=== PATIENT | male | born 1985 | race Caucasian/White ===

== ENCOUNTER 2021-12-14 22:34 | Emergency (ER) | payer MEDICARE, SELFPAY ==
[2021-12-14 22:35] VITALS: BP 155/80; PULSE 83; RESP 16; TEMP 36.4; O2SAT 98; BMI 32.3
--- NOTE | 2021-12-14 22:58 | EX.ED.UPPERE ---
HPI History of Present Illness Chief Complaint: Laceration Detail of Chief Complaint: Lacerations to right hand that occurred about 48 hours ago Informant: patient Narrative Narrative: Patient presents to the emergency department complaining of lacerations that he incurred about 48 hours ago. Patient states that he slipped in the kitchen and try to catch himself and slid his fingers across sheet-metal causing lacerations to his long, ring, and small fingers. Patient is left-hand dominant. Patient complains of some numbness to the tip and lateral aspect of the ring finger. He denies loss of strength or range of motion in the fingers. [facility] Medical History (Updated 12/14/21 @ 23:[address] Srinivasa Mishra, DO) Diabetes type 1, controlled Legally blind Home Medications insulin lispro [Humalog] 100 unit SQ 08/13/17 [History Last Taken Unknown] atorvastatin 20 mg PO DAILY 12/14/21 [History Last Taken Unknown] cephalexin 500 mg PO Q6 #40 capsule 12/14/21 [Rx Last Taken Unknown] insulin glargine [Lantus U-100 Insulin] SUBCUT 12/14/21 [History Last Taken Unknown] Allergy/AdvReac Type Severity Reaction Status Date / Time No Known Allergies Allergy Verified 12/14/21 22:44 Social History Smoking Status: Never smoker ROS [facility] ED Constitutional Constitutional ED: Reports systems reviewed and no addt'l complaints, except as documented; Denies body ache(s), change in weight or chills Eyes Eyes: Denies acute decrease in peripheral vision, change in vision, double vision or loss of vision ENT ENT ED: Reports none; Denies ear pain, lip swelling, loss taste/smell, neck pain, otalgia or sore throat Cardiovascular Cardiovascular: Reports none; Denies abdominal pain, chest pain with activity, leg edema, lightheadedness, palpitations, rapid heart rate or syncope Respiratory/Chest Respiratory/Chest: Reports none; Denies change in mental status, dry cough, dyspnea, hemoptysis, shortness of breath at rest or shortness of breath with exertion Gastrointestinal Gastrointestinal: Reports none; Denies abdominal pain, change in stool character, diarrhea, hematemesis, hematochezia, melena, rectal bleeding or vomiting Genitourinary Genitourinary ED: Reports none; Denies abdominal discomfort, anuria, dysuria, genital pain or polyuria Musculoskeletal Musculoskeletal: Reports none and other Details: Lacerations to right long, ring, and small fingers ; Denies arthralgias, back pain, difficulty walking, extremity pain, muscle weakness or myalgias Integumentary Reports none; Denies abscess or rash Neurologic Neurologic: Reports none; Denies abnormal gait, confusion, focal weakness, frequent falls, headache(s), loss of vision, numbness, paresthesias, radicular pain, vertigo or weakness Psychiatric Psychiatric: Reports systems reviewed and no addt'l complaints, except as documented and none; Denies behavioral changes, confusion, difficulty concentrating, hallucinations, suicidal ideation, tactile hallucinations or visual hallucinations Endocrine Endocrinology: Denies none, cold intolerance, excessive sweating, fatigue or heat intolerance Hematologic/Lymphatic Hematologic/Lymphatic: Reports none; Denies anemia, easy bleeding or easy bruising Allergic/Immunologic Allergic/Immunologic ED: Denies as per HPI, none, lip swelling, mouth swelling, throat swelling, tongue swelling or hives EXAM Physical Exam Const Vital Signs: 12/14/21 22:35 Temperature 97.6 F L Temperature Source Temporal Pulse Rate 83 Respiratory Rate 16 Blood Pressure 155/80 H Blood Pressure Mean 105 Pulse Ox 98 Oxygen Delivery Method Room Air Positive well nourished and well developed General Appearance ED: well developed and NAD HEENT Reports TM's clear and moist mucous membranes normocephalic and atraumatic; Negative for trauma or tenderness Tympanic Membrane ED: Yes TM's clear Eyes PERRL and EOMs intact bilaterally General Eye ED: Negative for pale conjunctiva or scleral icterus Neck no lymphadenopathy, supple and no JVD General: Negative for tenderness Chest Wall inspection of chest normal and palpation of chest normal Chest: Negative for tenderness Resp normal respiratory effort and clear to auscultation bilaterally Effort and Inspection: Negative for respiratory distress or pain with movement Auscultation: Negative for rhonchi, wheezes or diminished lung sounds Cardio regular rate, regular rhythm, S1 normal heart sound, S2 normal heart sound and no murmurs Peripheral Pulses: pulses 2+ throughout GI normal to inspection, nondistended, normoactive bowel sounds, soft to palpation, non-tender, non-distended and no masses Back/Spine no CVA tenderness and no thoracic nor lumbar tenderness Extremity Extremity Narrative: Evaluation of the right hand-patient has a 1.5 cm laceration to the pulp of the small finger that is well approximated and healing without active bleeding or purulent drainage noted. Patient also has a 2 cm laceration involving the volar aspect of the DIP joint of the ring finger with good range of motion flexion extension of the digit at the PIP and DIP. Patient also has a 2.5 cm laceration over the area of the DIP of the volar aspect of the long finger with good flexion extension of the digit at the DIP and PIP. Patient is noted to have slightly decreased sensation to the lateral aspect of the DIP of the ring finger. General Extremety ED: Negative for edema General Extremity: Negative for edema Neuro oriented x3, CN's II-XII intact bilaterally, no sensory deficits noted and gait normal Sensorium / Orientation: awake, alert, oriented to person, oriented to place and oriented to time Motor Exam: strength 5/5 throughout and strength abnormal Psych mental status grossly normal Skin no rashes or lesions noted and no wounds MDM MDM MDM Narrative Medical decision making narrative: Patient has wounds that are 48 hours old. These wounds are not amenable to suture repair. I suspect patient may have injury to the digital nerve of the ring finger. Wounds are already healing and cannot fully evaluate and visualize the flexor tendons. Patient will have clean dressing applied and will be referred to orthopedics for follow-up. Patient will be given a tetanus booster. Discharge Plan Triage Chief Complaint: Laceration ED Provider: Srinivasa Mishra Dx/Rx/DC Orders Clinical Impression: Finger laceration Instructions: ED Laceration, Old: Not Sutured Prescriptions: New cephalexin [cephalexin] 500 MG capsule 500 mg PO Q6 Qty: 40 RF: 0 No Action insulin lispro [Humalog U-100 Insulin] 100 UNIT/ML solution 100 unit SQ RF: 0 atorvastatin 20 mg tablet 20 mg PO DAILY RF: 0 Lantus U-100 Insulin 100 unit/mL solution SUBCUT RF: 0 Primary Care Provider: Ashwin Rosario Referrals: Lamont Gonzalez DO [STAFF PHYSICIAN] - 5-7 Days Ashwin Rosario MD [Primary Care Provider] - Disposition Disposition: Home, Self Care
[2021-12-14] MEDS: Diphth,Pertuss(Acell),Tet Vac 0.5 ML Vial IM (23:06)
== END 2021-12-14 23:12 | disposition home or self-care (01) ==
PROVIDERS: Emergency Provider Emergency Medicine; PCP Family Medicine; Visit Provider Emergency Medicine
DX: S61.216A Laceration without foreign body of right little finger without damage to nail, initial encounter (principal); E10.9 Type 1 diabetes mellitus without complications; Z79.4 Long term (current) use of insulin; S61.214A Laceration without foreign body of right ring finger without damage to nail, initial encounter; S61.212A Laceration without foreign body of right middle finger without damage to nail, initial encounter; W26.8XXA Contact with other sharp object(s), not elsewhere classified, initial encounter; Y93.9 Activity, unspecified; Y92.090 Kitchen in other non-institutional residence as the place of occurrence of the external cause; H54.8 Legal blindness, as defined in USA
CPT/HCPCS: 90471; 90715; 99282

== ENCOUNTER 2024-04-11 18:09 | Emergency (ER) | payer MEDICARE, SELFPAY ==
[2024-04-11 18:10] VITALS: BMI 31.1
[2024-04-11 18:11] VITALS: BP 166/96; PULSE 72; RESP 18; TEMP 35.9; O2SAT 99; BMI 29.0
--- NOTE | 2024-04-11 18:16 | EKG12_ITS ---
Test Reason : Blood Pressure : / mmHG Vent. Rate : 062 BPM Atrial Rate : 062 BPM P-R Int : 224 ms QRS Dur : 104 ms QT Int : 418 ms P-R-T Axes : 046 008 023 degrees QTc Int : 424 ms Sinus rhythm with 1st degree A-V block Minimal voltage criteria for LVH, may be normal variant ( R in aVL ) Borderline ECG Confirmed by Mook Contreras ([id number]), market editor GAMAL GARCIA ([id number]) on 04/16/2024 9:46:16 AM Referred By: Confirmed By:Mook Contreras
--- NOTE | 2024-04-11 18:19 | CT_ITS ---
INDICATION: left sided facial paralysis EXAMINATION: CTA CAROTIDS AND BRAIN - CTA Head and Neck W/ Contrast Injection (and W/O Contrast Images if performed) TECHNIQUE: Noncontrast CT head followed by Routine CTA of the head and neck was performed with post processing of the angiographic images for volumetric reconstructions. In addition, images were obtained of the [place] of [place]. Nascet criteria using the distal ICAs for comparison were used for evaluation of stenoses. 3D reconstructions were reviewed. A radiation dose optimization technique was used for this scan. IV Contrast dosage and agent: 100 mL Isovue-370 COMPARISON: None. FINDINGS: --Noncontrast CT head: No intracranial hemorrhage, mass, or focal mass effect. Normal hurd-white matter differentiation. No hydrocephalus. No scalp hematoma. Unremarkable orbits. Mastoid air cells are clear. Mild scattered paranasal sinus mucoperiosteal thickening. No acute osseous finding. --NECK: AORTIC ARCH AND BRANCHES: Normal anatomy, patent. RIGHT CCA: No occlusion, significant stenosis or dissection. RIGHT ICA: No occlusion, significant stenosis or dissection. LEFT CCA: No occlusion, significant stenosis or dissection. LEFT ICA: No occlusion, significant stenosis or dissection. RIGHT VERTEBRAL ARTERY: No occlusion, significant stenosis or dissection. LEFT VERTEBRAL ARTERY: No occlusion, significant stenosis or dissection. NECK SOFT TISSUES: Unremarkable. LUNG APICES: Clear. BONES: Unremarkable. --HEAD: --Anterior circulation: ICAs: No significant stenosis at the intracranial/visualized segments. ACAs: No significant stenosis at the visualized segments. ACOM: Present. MCAs: No significant stenosis at the visualized segments. --Posterior circulation: PCOMs: Not seen spinner box: No significant stenosis at the visualized segments. BASILAR ARTERY: No significant stenosis. VERTEBRAL ARTERIES: No significant stenosis at the intradural/visualized segments. No evidence of intracranial aneurysm or vascular malformation. CT/CTA Head AND Neck W/ Contrast IMPRESSION: No CT evidence of acute intracranial hemorrhage or injury. No CT evidence of cervical or proximal intracranial vascular occlusion or focal flow-limiting stenosis. Electronically Signed: Javier Dixon MD at 19:01 EDT ,
--- NOTE | 2024-04-11 18:25 | EDS_ITS ---
HPI History of Present Illness Chief Complaint: Stroke Alert Informant: patient Onset/Context/Timing Onset: Today and Hours Timing: Continuous Quality and Location: Positive for Left Facial Droop and Left Face Parasthesia Current Severity: Mild Maximum Severity: Mild Associated Symptoms Associated Symptoms: Negative for Headache, Nausea, Vomiting or Chest Pain Narrative Narrative: 39-year-old type I diabetic today around 11 AM developed left-sided facial paralysis and numbness. No trouble with his speech or vision. No weakness or numbness to his arms or legs. No headache. No prior stroke or TIA history. No other complaints. No recent illness. No recent hospitalization. Prior similar symptoms: No Recent Illness/Hospitalization: No PFSH PFS Medical History Legally blind Diabetes type 1, controlled Home Medications ?Medication ?Instructions ?Recorded ?Last Taken ?Type insulin lispro 100 unit/mL 100 unit SQ 08/13/17 Unknown History subcutaneous solution (Humalog U-100 Insulin) atorvastatin 20 mg tablet 20 mg PO DAILY 12/14/21 Unknown History cephalexin 500 mg capsule 500 mg PO Q6 #40 CAPSULES 12/14/21 Unknown Rx insulin glargine 100 unit/mL subcut 12/14/21 Unknown History subcutaneous solution (Lantus U-100 Insulin) acyclovir 800 mg tablet 800 mg PO TID #14 tabs 04/11/24 Unknown Rx insulin aspart U-100 100 unit/mL subcut 04/11/24 Unknown History (3 mL) subcutaneous pen (Novolog FlexPen U-100 Insulin aspart) prednisone 20 mg tablet 40 mg (2 x 20 mg) PO DAILY 6 days 04/11/24 Unknown Rx #12 tabs Allergy/AdvReac Type Severity Reaction Status Date / Time No Known Allergies Allergy Verified 04/11/24 18:11 Social History Smoking Status: Never smoker ROS ROS ED ROS Narrative Denies recent illness. Review of Systems ROS Unobtainable: Denies due to encephalopathy Constitutional Constitutional ED: Denies chills or fever(s) Eyes Eyes: Denies change in vision ENT ENT ED: Denies ear pain Cardiovascular Cardiovascular: Denies chest pain Respiratory/Chest Respiratory/Chest: Denies cough or dyspnea Gastrointestinal Gastrointestinal: Denies abdominal pain Genitourinary Genitourinary ED: Denies dysuria or hematuria Musculoskeletal Musculoskeletal: Denies arthralgias Integumentary Denies abscess or Abrasions Neurologic Neurologic: Denies headache(s) Psychiatric Psychiatric: Denies anxiety or depression Endocrine Endocrinology: Denies polydipsia Hematologic/Lymphatic Hematologic/Lymphatic: Denies easy bleeding, easy bruising or lymphadenopathy Allergic/Immunologic Allergic/Immunologic ED: Denies mouth swelling or urticaria EXAM Physical Exam Narrative Exam Narrative: 39-year-old male vital signs stable afebrile. Saw the patient in triage because of a stroke alert called. H EENT exam pupils round reactive light extra motions are intact. Sparing of his forehead he is able to wrinkle both sides of his forehead. He has a left facial droop. Tongue midline. Normal speech. Extraocular motions are intact. He has trouble closing his left eye. Neck nontender. Lungs clear. Heart regular rhythm. Abdomen soft nontender. Moving all 4 extremities. 5 out of 5 land conservation specialist strength. Dorsi and plantarflexion intact. Fingertip to nose within normal limits. Other than his left facial droop he has no other neurological findings. There is sparing. 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 Const Vital Signs: 04/11/24 18:11 04/11/24 19:10 04/11/24 19:10 Temperature 96.7 F L Temperature Source Temporal Pulse Rate 72 66 65 Respiratory Rate 18 18 22 H Blood Pressure 166/96 H 133/84 H 133/84 H Blood Pressure Mean 119 100 100 Pulse Ox 99 97 95 Oxygen Delivery Method Room Air Room Air 04/11/24 20:00 04/11/24 21:00 Temperature Temperature Source Pulse Rate 62 66 Respiratory Rate 16 18 Blood Pressure 130/89 H 136/92 H Blood Pressure Mean 102 106 Pulse Ox 98 98 Oxygen Delivery Method Room Air Positive well nourished and well developed; Negative for obese, cachectic, contractures or unkempt General Appearance ED: well developed and NAD; Negative for unkempt, cachectic or contractures Nutritional Appearance: Negative for cachectic or obese HEENT Reports moist mucous membranes; Denies dry mucous membranes atraumatic; Negative for trauma Mouth ED: No dry mucous membranes Mouth: No dry mucous membranes Eyes PERRL and EOMs intact bilaterally General Eye ED: Negative for pale conjunctiva or scleral icterus Neck no lymphadenopathy, supple and no JVD General: Negative for tenderness Thyroid: Negative for other Chest Wall inspection of chest normal and palpation of chest normal Chest: Negative for other Resp normal respiratory effort and clear to auscultation bilaterally Effort and Inspection: Negative for retractions or pain with movement Auscultation: Negative for rales, rhonchi or wheezes Cardio no murmurs Rate: regular rate Rhythm: regular rhythm GI normal to inspection, nondistended, normoactive bowel sounds, soft to palpation, non-tender, non-distended and no masses Inspection: Negative for abdominal distention Auscultation: normoactive bowel sounds Palpation: Negative for tender or guarding Back/Spine no CVA tenderness General Back: Negative for CVA tenderness or other Cervical Spine: Negative for cervical spine tenderness Thoracic Spine / Upper Back: Negative for thoracic spinal tenderness Lumbar Spine / Lower Back: Negative for lumbar spinal tenderness Extremity normal to inspection General Extremety ED: Negative for deformity, edema or tenderness General Extremity: Negative for deformity or edema Neuro oriented x3 and No CN's II-XII intact bilaterally Neuro Narrative: Left facial droop. Forehead spared. Normal speech. Normal extraocular motions. Weakness and closing his left eye. Consistent with a Hernandez's palsy. Bilateral normal land conservation specialist strength. Normal dorsi plantarflexion. Sensorium / Orientation: alert, oriented to person, oriented to place and oriented to time; Negative for orientation impaired, confused or stuporous Speech: speech normal Motor Exam: strength 5/5 throughout Psych mental status grossly normal Appearance: Negative for unkempt Attitude: No agitated Mood & Affect: Negative for depressed, anxious or tearful Attention / Concentration: Negative for other Skin no wounds General Skin Exam: Negative for jaundice Lesions: no lesions Rashes: no rashes NIHSS NIHSS Initial: 1a Level of Consciousness: 0 1b LOC Questions (Score 2 if aphasic/stupor): 0 1c LOC Commands (Only score 1st attempt): 0 2 Best Gaze (If aphasic, use reflexive mvmts.): 0 3 Visual: 0 4 Facial Palsy: 2 5 Motor Arm Right (UN = amputation/fusion): 0 5 Motor Arm Left: 0 6 Motor Leg Right: 0 6 Motor Leg Left: 0 7 Limb ataxia (Only + if out of proportion): 0 8 Sensory (Aphasia/stupor=0 or 1, coma=2): 0 9 Best Language: 0 10 Dysarthria (mute, coma=2, intubated=UN): 0 11 Extinction and Inattention (only scored if +): 0 Total Score: 2 MDM MDM MDM Narrative Medical decision making narrative: 39-year-old insulin-dependent diabetic male with 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 CAT scan and labs are being obtained. Repeat exam patient doing well at 9:20 PM. Exam unchanged. Again left facial droop. Sparing of the forehead. Difficulty tightly closing his left eye. Consistent with Hernandez's palsy. The rest of his neurologic exam is normal. Normal motor strength and sensation in both upper and lower extremities no drift. He will be discharged home and treated as Hernandez's palsy. Acyclovir and prednisone. History & Record Review Discussion w/independent historian: Patient and Family Additional record(s) reviewed:: Prior inpatient record, Prior outpatient record, Prior ED visit and Prior labs Lab Data Attestation: I reviewed the patient's lab results. Lab results narrative: CBC normal. White count of 6. H&H 14 and 44. Platelets 233. Electrolytes show gap 4. Normal BUN and creatinine. Glucose 164. Liver enzymes normal. CT of the brain and CTA head and neck unremarkable. Labs: Laboratory Results - last 24 hr 04/11/24 18:20 WBC 6.4 RBC 4.90 Hgb 14.9 Hct 44.6 MCV 91.0 MCH 30.4 MCHC 33.4 RDW Std Deviation 39.8 RDW Coeff of Katey 11.9 Plt Count 233 MPV 11.6 Sodium 136 Potassium 3.6 Chloride 102 Carbon Dioxide 30.0 Anion Gap 4 L BUN 12 Creatinine 1.17 Estim Creat Clear Calc 96.46 Est GFR (MDRD) Af Amer 89 Est GFR (MDRD) Non-Af 74 BUN/Creatinine Ratio 10.3 Glucose 164 H Calcium 9.0 Total Bilirubin 1.30 H AST 17 ALT 22 Alkaline Phosphatase 75 Total Protein 7.8 Albumin 3.8 Globulin 4.0 Albumin/Globulin Ratio 1.0 Radiography Diagnostic Testing: Clinical Impression(s) from Imaging Studies Head/Neck CTA 04/11/24 18:19 IMPRESSION: No CT evidence of acute intracranial hemorrhage or injury. No CT evidence of cervical or proximal intracranial vascular occlusion or focal flow-limiting stenosis. Electronically Signed: Javier Dixon MD at 19:01 EDT , Rhythm Strip Rhythm Strip: Sinus Rhythm Rate: 62 Ectopy: None EKG Initial EKG: Attestation: I personally reviewed and interpreted this EKG as follows: Interpretation: Sinus Rhythm and No Acute Injury Pattern Comments: Normal sinus rhythm rate of 62. No acute signs of NE or ischemia. No dysrhythmia. First-degree AV block. OH interval 224 Discharge Plan Triage Chief Complaint: Stroke Alert ED Provider: Farooq Sumner Dx/Rx/DC Orders Clinical Impression: Hernandez's palsy, History of diabetes mellitus Instructions: Hernandez's Palsy Prescriptions: New prednisone 20 mg tablet 40 mg PO DAILY 6 Days Qty: 12 0RF acyclovir 800 mg tablet 800 mg PO TID Qty: 14 0RF No Action insulin lispro [Humalog U-100 Insulin] 100 UNIT/ML solution 100 unit SQ Patient Comments: SLIDING SCALE atorvastatin 20 mg tablet 20 mg PO DAILY Lantus U-100 Insulin 100 unit/mL solution SUBCUT Patient Comments: INJECT 12 UNITS SUBCUTANEOUSLY AT BEDTIME cephalexin [cephalexin] 500 MG capsule 500 mg PO Q6 Qty: 40 0RF insulin aspart U-100 [Novolog FlexPen U-100 Insulin] 100 unit/mL (3 mL) insulin pen subcut Primary Care Provider: Fawn Ovalle Referrals: Ashwin Rosario MD [Non-Staff] - Fawn Ovalle PA [Primary Care Provider] - 1 Week if not improving Activity Restrictions/Additional Instructions: Tape your eye closed at night to prevent it from drying out causing a corneal ulcer. Artificial tears during the day. Prednisone 40 mg a day for 1 week. Watch her sugars closely. I would take it again tomorrow morning. And take it each morning. Acyclovir and antiviral till gone. Follow-up with your primary care provider as needed if not improving. Print Language: Croatian Disposition Disposition: Home, Self Care
[2024-04-11 18:28] LABS: Hematocrit 44.6 % (40-54); Hemoglobin 14.9 g/dL (13.0-16.5); Mean Corp Hgb Conc 33.4 g/dL (32-36); Mean Corpuscular Hgb 30.4 pg (27.0-32.0); Mean Platelet Vol. 11.6 fl (6.2-12.0); Platelet Count 233 K/mm3 (150-450); RBC Distribution Width CV 11.9 % (11.6-14.6); RBC Distribution Width SD 39.8 fl (35.1-43.9); White Blood Count 6.4 K/mm3 (4.4-11.0)
[2024-04-11 19:05] LABS: AST(SGOT) 17 U/L (15-37); Alanine Aminotransfer ALT/SGPT 22 U/L (16-61); Albumin, Serum 3.8 g/dL (3.2-5.0); Alkaline Phosphatase 75 U/L (45-117); Anion Gap 4 (5-15); BUN 12 mg/dL (7-18); BUN/Creat Ratio 10.3 RATIO (10-20); Chloride 102 mmol/L (98-107); Creatinine, Serum 1.17 mg/dL (0.70-1.30); EST Glomerular Filtration Rate 74 mL/min (>60); Est Glom Filt Rate - Afr Amer 89 mL/min (>60); Estimated Creatinine Clearance 96.46 ml/min; Glucose 164 mg/dL (74-106); Potassium 3.6 mmol/L (3.5-5.1); Protein, Total 7.8 g/dL (6.4-8.2); Sodium Level 136 mmol/L (136-145)
[2024-04-11 19:10] VITALS: BP 133/84; PULSE 65; PULSE 66; RESP 18; RESP 22; O2SAT 95; O2SAT 97
[2024-04-11 20:00] VITALS: BP 130/89; PULSE 62; RESP 16; O2SAT 98
[2024-04-11 21:00] VITALS: BP 136/92; PULSE 66; RESP 18; O2SAT 98
[2024-04-11 21:37] VITALS: BP 136/92; PULSE 68; RESP 20; TEMP 36.9; O2SAT 99
[2024-04-11] MEDS: predniSONE 20 MG Tablet 40 MG PO (21:45)
[2024-04-11] MEDS: Acyclovir 800 MG Tablet PO (21:45)
[2024-04-12 15:59] LABS: Bedside Glucose 186 mg/dL (74-106)
== END 2024-04-11 21:49 | disposition home or self-care (01) ==
PROVIDERS: Emergency Provider Emergency Medicine; PCP Physician Assistant; Visit Provider Emergency Medicine
DX: G51.0 Bell's palsy (principal); E10.9 Type 1 diabetes mellitus without complications; Z79.4 Long term (current) use of insulin
CPT/HCPCS: 70496; 70498; 80053; 82962; 85027; 93005; 99285; Q9967; A4216